=== PATIENT | female | born 1970 | race Caucasian/White ===

== ENCOUNTER → 2016-12-11 | Outpatient (CLI) | payer OTHER ==
--- NOTE | 2016-12-11 11:48 | US ---
Right quadrant Abdominal Ultrasound History: An.. Comparison: None available. Findings: The liver has normal echotexture and contour. There is no intrahepatic biliary dilatation. The common bile duct measures 2.5 mm and is normal. The gallbladder is normal.. The right kidney gia ures 12 cm without hydronephrosis or mass. The visible aorta is normal caliber . The visible portions of the pancreas are normal with partial obscuration of the pancreatic head and tail by overlying bow el gas. The visible portions of the IVC are normal. Impression: Normal right upper quadrant sonogram.. Results called to Dr. Caleb Sharma.
== END ==
LOC: FIMAGING 11:01
PROVIDERS: ATTEND Emergency Medicine
DX: R10.11 Right upper quadrant pain (principal)

== ENCOUNTER → 2016-12-11 | Outpatient (CLI) ==
--- NOTE | 2016-12-11 10:48 | DX ---
PA and lateral chest. Clinical History: RUQ PAIN Comparison Study: None available. Findings: The lungs are clear. No pleural disease identified. Heart size is normal. Visualized osseous structures appear normal. Impression: Normal chest.
== END ==
LOC: BMCIMAGING 10:18
PROVIDERS: ATTEND Family Medicine
DX: R10.11 Right upper quadrant pain (principal)